=== PATIENT | female | born 1955 | race Caucasian/White ===

== ENCOUNTER → 2017-02-04 | Outpatient (CLI) | payer BC ==
[~2017-02-04] MED LIST: ALBU8.5H INH; ASPI81TA2 PO; CALC-1119 PO; CHOL200024 PO; DEXT30SU4 PO; FISH1CAP59 PO; FLUT16SP EA NOSTRIL; IPRA4AER INH; LEVO75TA10 PO; PANT40TA27 PO; PRED20TA PO; RANI300T4 PO
== END ==
LOC: WC.BC 15:13
DX: Z12.31 Encounter for screening mammogram for malignant neoplasm of breast (principal); C50.912 Malignant neoplasm of unspecified site of left female breast; Z08 Encounter for follow-up examination after completed treatment for malignant neoplasm
CPT/HCPCS: 77063; G0202